=== PATIENT | male | born 1985 | race African-American/Black ===

== ENCOUNTER 2018-05-02 23:12 | Emergency (ER) | payer SELFPAY ==
[2018-05-02 23:15] VITALS: BMI 21.5
[2018-05-02] MEDS ORDERED: DIPHTH,PERTUSS(ACELL),TET 0.5 ML DISP.SYRIN IM ONE (23:28)
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
--- NOTE | 2018-05-02 23:30 | PDOC ---
Attending Attestation - [facility] HPI: 05/02/18 23:52 The patient is a 32 year old male, with no significant past medical history, who presents to the emergency department for evaluation of facial dog bite by an unknown dog one hour prior to ED arrival. The patient states he was walking his two dogs when he was attacked by another dog outside. The patient denies chest pain, shortness of breath, headache and dizziness. The patient denies fever, chills, nausea, vomit, diarrhea and constipation. The patient denies dysuria, frequency, urgency and hematuria. Allergies: NKDA - Medical Decision Making 05/02/18 23:52 Documentation prepared by Katiana Crocker, acting as medical referral coordinator for Batsheva Montague MD 05/03/18 00:23 [facility] was called and transfer was arranged. ENT specialist, Dr. Boss, accepts the patient to be seen at [facility] ED.
[2018-05-02] MEDS ORDERED: AMPICILLIN NA/SULBACTAM NA 3 GM in SODIUM CHLORIDE 100 ML IVPB ONE (23:46)
[2018-05-02] MEDS ORDERED: RABIES IMMUNE GLOBULIN 300 UNITS/1 ML VIAL IM ONE (23:57)
[2018-05-03] MEDS ORDERED: RABIES VACCINE (PCEC)/PF 2.5 UNIT/VIAL IM ONE (00:03)
[2018-05-03] MEDS ORDERED: morphine CARPU-JECT 4 MG/1 ML DISP.SYRIN IVPUSH ONE ×2 (00:04→01:20)
[2018-05-03] MEDS ORDERED: morphine SULFATE 4 MG/ML VIAL ONE (00:37)
[2018-05-03] MEDS ORDERED: MORPHINE SULFATE 2 MG/ML VIAL ONE ×2 (00:38→01:50)
[2018-05-03 02:14] VITALS: BP 158/101; PULSE 70; TEMP 98.5
== END 2018-05-03 02:01 | disposition short-term general hospital (02) ==
LOC: JER 23:12
PROC: 3E03329 Introduction of Other Anti-infective into Peripheral Vein, Percutaneous Approach (ICD-10-PCS; principal; 2018-05-02)
PROC: 3E033NZ Introduction of Analgesics, Hypnotics, Sedatives into Peripheral Vein, Percutaneous Approach (ICD-10-PCS; 2018-05-02)
PROC: 3E033NZ Introduction of Analgesics, Hypnotics, Sedatives into Peripheral Vein, Percutaneous Approach (ICD-10-PCS; 2018-05-02)
PROC: 3E0234Z Introduction of Serum, Toxoid and Vaccine into Muscle, Percutaneous Approach (ICD-10-PCS; 2018-05-02)
PROC: 3E0234Z Introduction of Serum, Toxoid and Vaccine into Muscle, Percutaneous Approach (ICD-10-PCS; 2018-05-02)
PROC: 3E0234Z Introduction of Serum, Toxoid and Vaccine into Muscle, Percutaneous Approach (ICD-10-PCS; 2018-05-02)
DX: S01.85XA Open bite of other part of head, initial encounter (principal); S01.511A Laceration without foreign body of lip, initial encounter; S50.811A Abrasion of right forearm, initial encounter; S50.812A Abrasion of left forearm, initial encounter; W54.0XXA Bitten by dog, initial encounter; Y93.K1 Activity, walking an animal; Y92.480 Sidewalk as the place of occurrence of the external cause; Y99.8 Other external cause status
CPT/HCPCS: 90375; 90675; 90715; 99283-25

== ENCOUNTER 2019-08-24 15:59 | Inpatient (IN) | payer BC ==
[2019-08-24] MEDS ORDERED: AMOX TR/POT CLAV 875MG/125MG TABLETS (FP) PO ONE (17:31)
[2019-08-24] MEDS ORDERED: BACITRACIN 0.9 GM PACKET TP ONE (17:31)
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
[2019-08-24] MEDS ORDERED: AMPICILLIN NA/SULBACTAM NA 1.5 GM in SODIUM CHLORIDE 100 ML IVPB ONE (17:52)
[2019-08-24] MEDS ORDERED: SODIUM CHLORIDE 1,000 ML IV STA (17:53)
[2019-08-24] MEDS ORDERED: ACETAMINOPHEN 1000 MG/100 ML VIAL (NON FORMULARY) IVPB ONE (17:53)
[2019-08-24] MEDS ORDERED: BACITRACIN 15 GM TUBE TOPICAL OINTMENT ONE (17:58)
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
[2019-08-24] MEDS ORDERED: ACETAMINOPHEN INJECTION 100 ML IVPB ONE (18:24)
[2019-08-24 18:51] LABS: BASO % 0.3 % (0-2.0); EOS % 0.1 % (0-4.5); HEMATOCRIT 41.3 % (35.4-49); LYMPH % 6.8 % (8-40); MCH 33.6 pg (25.7-33.7); MCHC 33.9 g/dl (32.0-35.9); MEAN CELL VOLUME 99.4 fl (80-96); MEAN PLT VOLUME 7.4 fl (7.5-11.1); MONO % 4.8 % (3.8-10.2); PLATELET COUNT 318 K/MM3 (134-434); RBC 4.15 M/mm3 (4.00-5.60); RDW 14.8 % (11.9-15.9); WHITE BLOOD COUNT 20.6 K/mm3 (4.0-10.0)
[2019-08-24 19:26] LABS: ALBUMIN 4.4 g/dl (3.4-5.0); BILIRUBIN,TOTAL 0.2 mg/dL (0.2-1); BLOOD UREA NITROGEN 8.8 mg/dL (7-18); CALCIUM 8.9 mg/dL (8.5-10.1); CREATININE 0.9 mg/dL (0.55-1.3); TOT PROT 7.9 g/dl (6.4-8.2)
[2019-08-24 19:37] LABS: PLATELET ESTIMATE ADEQUATE
[2019-08-24] MEDS ORDERED: VANCOMYCIN 1 GM PREMIX - 1 GM/200 ML BAG IVPB ONE (20:41)
[2019-08-24] MEDS ORDERED: VANCOMYCIN 1 GM in D5W (PRE-DOCKED) 1,000 MG/250 ML IVPB ONE (20:48)
[2019-08-24] MEDS ORDERED: VANCOMYCIN 1 GRAM (PRE-DOCKED) 1,000 MG/250 ML BAG IVPB ONE (21:19)
[2019-08-24] MEDS ORDERED: SODIUM CHLORIDE 0.9% 500 ML INFUS.BAG IV ONE (23:01)
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
[2019-08-24] MEDS ORDERED: ACETAMINOPHEN 325 MG TABLET (FP) PO PRN (23:54)
[2019-08-25] MEDS ORDERED: ACETAMINOPHEN 325 MG TABLET (FP) ONE (00:18)
[2019-08-25] MEDS: AMPICILLIN NA/SULBACTAM NA 3 GM in SODIUM CHLORIDE 100 ML IVPB SCH ×4 (00:30→15:00)
[2019-08-25 02:12] LABS: ERYTHROCYTE SEDIMENTATION RATE 7 mm/hr (0-10)
[2019-08-25 08:06] LABS: BASO % 0.6 % (0-2.0); HEMATOCRIT 36.1 % (35.4-49); HEMOGLOBIN 12.4 GM/dL (11.7-16.9); LYMPH % 9.5 % (8-40); MCHC 34.3 g/dl (32.0-35.9); MEAN CELL VOLUME 99.2 fl (80-96); MEAN PLT VOLUME 7.8 fl (7.5-11.1); MONO % 4.4 % (3.8-10.2); NEUT % 84.5 % (42.8-82.8); PLATELET COUNT 261 K/MM3 (134-434); RBC 3.64 M/mm3 (4.00-5.60); RDW 14.5 % (11.9-15.9); WHITE BLOOD COUNT 10.5 K/mm3 (4.0-10.0)
[2019-08-25 08:10] LABS: BLOOD UREA NITROGEN 8.5 mg/dL (7-18); CALCIUM 8.4 mg/dL (8.5-10.1); CREATININE 0.8 mg/dL (0.55-1.3)
--- NOTE | 2019-08-25 09:16 | PN ---
Physical Exam: SUBJECTIVE: Patient seen and examined. Pain is controlled. OBJECTIVE: Vital Signs Period Temp Pulse Resp BP Sys/Ortiz Pulse Ox Last 24 Hr 98.4 F 107 18-18 133/85 99 GENERAL: The patient is awake, alert, and fully oriented, in no acute distress. LUNGS: Breath sounds equal, clear to auscultation bilaterally, no wheezes, no crackles, no accessory muscle use. HEART: Regular rate and rhythm, S1, S2 without murmur, rub or gallop. ABDOMEN: Soft, nontender, nondistended, normoactive bowel sounds, no guarding, no rebound, no hepatosplenomegaly, no masses. EXTREMITIES: 2+ pulses, warm, well-perfused, no edema. Laboratory Results - last 24 hr 08/24/19 08/24/19 08/25/19 17:23 17:23 06:36 WBC 20.6 H 10.5 H RBC 4.15 3.64 L Hgb 14.0 12.4 Hct 41.3 36.1 MCV 99.4 H 99.2 H MCH 33.6 34.0 H MCHC 33.9 34.3 RDW 14.8 14.5 Plt Count 318 261 MPV 7.4 L 7.8 Absolute Neuts (auto) 18.1 H 8.8 H Neutrophils % 88.0 H 84.5 H Neutrophils % (Manual) 84.0 H Band Neutrophils % 1.0 Lymphocytes % 6.8 L 9.5 D Lymphocytes % (Manual) 9.0 Monocytes % 4.8 4.4 Monocytes % (Manual) 6 Eosinophils % 0.1 1.0 D Eosinophils % (Manual) 0.0 Basophils % 0.3 0.6 Basophils % (Manual) 0.0 Nucleated RBC % 0 0 Platelet Estimate Adequate ESR 7 Sodium 142 Potassium 4.0 Chloride 109 H Carbon Dioxide 25 Anion Gap 8 BUN 8.8 Creatinine 0.9 Est GFR (CKD-EPI)AfAm 129.61 Est GFR (CKD-EPI)NonAf 111.83 Random Glucose 86 Calcium 8.9 Total Bilirubin 0.2 AST 22 ALT 21 Alkaline Phosphatase 91 Total Protein 7.9 Albumin 4.4 08/25/19 06:36 WBC RBC Hgb Hct MCV MCH MCHC RDW Plt Count MPV Absolute Neuts (auto) Neutrophils % Neutrophils % (Manual) Band Neutrophils % Lymphocytes % Lymphocytes % (Manual) Monocytes % Monocytes % (Manual) Eosinophils % Eosinophils % (Manual) Basophils % Basophils % (Manual) Nucleated RBC % Platelet Estimate ESR Sodium 138 Potassium 4.0 Chloride 107 Carbon Dioxide 24 Anion Gap 7 L BUN 8.5 Creatinine 0.8 Est GFR (CKD-EPI)AfAm 136.03 Est GFR (CKD-EPI)NonAf 117.37 Random Glucose 89 Calcium 8.4 L Total Bilirubin AST ALT Alkaline Phosphatase Total Protein Albumin Active Medications Generic Name Dose Route Start Last Admin Trade Name Freq PRN Reason Stop Dose Admin Acetaminophen 650 mg 08/24/19 23:54 08/25/19 00:29 Tylenol - PO 650 mg Q6H PRN Administration PAIN LEVEL 4 - 6 Ampicillin Sodium/Sulbactam 100 mls @ 200 mls/hr 08/24/19 23:45 08/25/19 03: 55 Sodium 3 gm/ Sodium Chloride IVPB 200 mls/hr Q6H-IV XAVI Administration Oxycodone/Acetaminophen 1 combo 08/24/19 23:53 08/25/19 00:29 Percocet 5/325 - PO 1 combo Q6H PRN Administration PAIN LEVEL 7 - 10 ASSESSMENT/PLAN: This is a 33 year old man with a history of eczema who presented to the ED with multiple dog bites to his legs. 1. Sepsis (tachycardia, leukocytosis) secondary to multiple dog bites with cellulitis of lower extremities - Continue Unasyn - Wound care - Pain control Visit type - Emergency Visit Emergency Visit: Yes ED Registration Date: 08/24/19 Care time: The patient presented to the Emergency Department on the above date and was hospitalized for further evaluation of their emergent condition. - New Patient This patient is new to me today: Yes Date on this admission: 08/25/19 - Critical Care Critical Care patient: No - Discharge Referral Referred to [facility] Med P.C.: No
[2019-08-25] MEDS ORDERED: oxyCODONE HCL 5 MG TABLET PO PRN (09:18)
[2019-08-25] MEDS ORDERED: ACETAMINOPHEN 325 MG TABLET (FP) PO PRN (09:18)
--- NOTE | 2019-08-25 10:47 | PN ---
Progress Note (short form) - Note Progress Note: ID CONSULT DICTATED S/P DOG BITES CELLULITIS LEUKOCYTOSIS OBTAIN BC REPEAT CBC EMPIRIC UNASYN
[2019-08-25 11:25] VITALS: TEMP 98
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
--- NOTE | 2019-08-25 17:49 | DS ---
Physical Exam: SUBJECTIVE: Patient seen and examined OBJECTIVE: Vital Signs Period Temp Pulse Resp BP Sys/Ortiz Pulse Ox Last 24 Hr 98.0 F 75 18-18 127/75 99 PHYSICAL EXAM GENERAL: The patient is awake, alert, and fully oriented, in no acute distress. LUNGS: Breath sounds equal, clear to auscultation bilaterally, no wheezes, no crackles, no accessory muscle use. HEART: Regular rate and rhythm, S1, S2 without murmur, rub or gallop. ABDOMEN: Soft, nontender, nondistended, normoactive bowel sounds, no guarding, no rebound, no hepatosplenomegaly, no masses. EXTREMITIES: 2+ pulses, warm, well-perfused, no edema. SKIN: Multiple puncture wounds and lacerations of both lower extremities. LABS Laboratory Results - last 24 hr 08/24/19 08/24/19 08/25/19 17:23 17:23 06:36 WBC 20.6 H 10.5 H RBC 4.15 3.64 L Hgb 14.0 12.4 Hct 41.3 36.1 MCV 99.4 H 99.2 H MCH 33.6 34.0 H MCHC 33.9 34.3 RDW 14.8 14.5 Plt Count 318 261 MPV 7.4 L 7.8 Absolute Neuts (auto) 18.1 H 8.8 H Neutrophils % 88.0 H 84.5 H Neutrophils % (Manual) 84.0 H Band Neutrophils % 1.0 Lymphocytes % 6.8 L 9.5 D Lymphocytes % (Manual) 9.0 Monocytes % 4.8 4.4 Monocytes % (Manual) 6 Eosinophils % 0.1 1.0 D Eosinophils % (Manual) 0.0 Basophils % 0.3 0.6 Basophils % (Manual) 0.0 Nucleated RBC % 0 0 Platelet Estimate Adequate ESR 7 Sodium 142 Potassium 4.0 Chloride 109 H Carbon Dioxide 25 Anion Gap 8 BUN 8.8 Creatinine 0.9 Est GFR (CKD-EPI)AfAm 129.61 Est GFR (CKD-EPI)NonAf 111.83 Random Glucose 86 Calcium 8.9 Total Bilirubin 0.2 AST 22 ALT 21 Alkaline Phosphatase 91 Total Protein 7.9 Albumin 4.4 08/25/19 06:36 WBC RBC Hgb Hct MCV MCH MCHC RDW Plt Count MPV Absolute Neuts (auto) Neutrophils % Neutrophils % (Manual) Band Neutrophils % Lymphocytes % Lymphocytes % (Manual) Monocytes % Monocytes % (Manual) Eosinophils % Eosinophils % (Manual) Basophils % Basophils % (Manual) Nucleated RBC % Platelet Estimate ESR Sodium 138 Potassium 4.0 Chloride 107 Carbon Dioxide 24 Anion Gap 7 L BUN 8.5 Creatinine 0.8 Est GFR (CKD-EPI)AfAm 136.03 Est GFR (CKD-EPI)NonAf 117.37 Random Glucose 89 Calcium 8.4 L Total Bilirubin AST ALT Alkaline Phosphatase Total Protein Albumin HOSPITAL COURSE: Date of Admission:08/24/19 Date of Discharge: 08/25/19 Minutes to complete discharge: 30 Discharge Summary Reason For Visit: DOG BITE WOUND Current Active Problems Cellulitis of both lower extremities (Acute) Dog bite of multiple sites of left lower extremity (Acute) Dog bite of multiple sites of right lower extremity (Acute) Sepsis (Acute) Condition: Stable - Instructions Diet, Activity, Other Instructions: You came to the ER at [facility] on August 24 after sustaining multiple dog bites. The wounds were cleaned and you were treated with an antibiotic, Unasyn. You had no fevers while in the hospital. You are being discharged on August 25. You should apply Bacitracin to the wounds twice a day and take an antibiotic, Augmentin, twice a day for 1 week. A prescription has been sent to [facility]. You should schedule an appointment with the [facility] in 2 days. Please return to the ER if you develop fever, increasing redness or swelling, pus draining from any wounds. Referrals: [facility] [place] [facility] [place] [Provider Group] - 08/27/19 Disposition: HOME - Home Medications Comprehensive Discharge Medication List: Ambulatory Orders Amoxicillin/Potassium Clav [Augmentin 875-125 Tablet] 1 tab PO BID #14 tablet - Discharge Referral Referred to [id number] No
[2019-08-25 18:26] VITALS: BP 145/75; PULSE 85
== END 2019-08-25 18:31 | disposition home or self-care (01) | DRG 605 ==
LOC: JERFT 15:59 → JER 15:59 → JERBED 23:38
PROVIDERS: ATTEND Internal Medicine
DX: S81.852A Open bite, left lower leg, initial encounter (principal); L03.116 Cellulitis of left lower limb; L03.115 Cellulitis of right lower limb; S81.851A Open bite, right lower leg, initial encounter; D72.829 Elevated white blood cell count, unspecified; W54.0XXA Bitten by dog, initial encounter; Y93.9 Activity, unspecified; Y92.89 Other specified places as the place of occurrence of the external cause; Y99.9 Unspecified external cause status
CPT/HCPCS: 36415; 73706-TC-RT; 80048; 80053; 85025; 85651; 87040; 99285-25; J0131; J7030; Q9967